=== PATIENT | female | born 1955 | race African-American/Black ===

== ENCOUNTER 2017-07-23 10:21 | Observation (INO) | payer BC, OTHER ==
[~2017-07-23] VITALS: Ht 165.1 cm; Wt 70.0 kg
[~2017-07-23 10:21] MED LIST: DILT360C12 PO; FERR324T4 PO
[2017-07-23 10:25] VITALS: BP 178/81; PULSE 131; RESP 16; TEMP 97.6; O2SAT 100
[2017-07-23 11:03] VITALS: BP 147/68; PULSE 115; RESP 12; O2SAT 100
[2017-07-23] MEDS ORDERED: LOSA25TA PO (11:06)
[2017-07-23] MEDS ORDERED: BP med PO (11:06)
--- NOTE | 2017-07-23 11:08 | PD ---
HPI Chief Complaint: Dizziness Time Seen by Provider: 10:41 Travel History International Travel<30 days: No Contact w/Intl Traveler<30days: No Traveled to known affect area: No History of Present Illness HPI 62 y/o female presents with dizziness and lightheaded feeling for the past couple of days. She denies any shortness of breath, chest pain, fever or other concurrent complaints. She states she feels worse when she moves around. She denies other modifying factors. She denies recurrent history of this. Quality is lightheaded. Severity is progressive. PFSH Past Medical History Hypertension: Yes Past Surgical History Cholecystectomy: Yes Social History Alcohol Use: No Tobacco Use: No Substance Use: No Allergies-Medications (Allergen,Severity, Reaction): Coded Allergies: No Known Allergies (Unverified Allergy, Unknown, 07/23/17) Reported Meds & Prescriptions Reported Meds & Active Scripts Active Reported [BP med ] PO HS Losartan (Losartan Potassium) 25 Mg Tab 25 Mg PO DAILY Review of Systems Except as stated in HPI: all other systems reviewed are Neg Physical Exam Narrative GENERAL: 62 y/o female in no apparent distress SKIN: Focused skin assessment warm/dry. HEAD: Atraumatic. Normocephalic. EYES: Pupils equal and round. No scleral icterus. No injection or drainage. ENT: No nasal bleeding or discharge. Mucous membranes pink and moist. NECK: Trachea midline. CARDIOVASCULAR: Regular rate and rhythm. RESPIRATORY: No accessory muscle use. Clear to auscultation. Breath sounds equal bilaterally. GASTROINTESTINAL: Abdomen soft, non-tender, nondistended. MUSCULOSKELETAL: No obvious deformities. No clubbing. No cyanosis NEUROLOGICAL: Awake and alert. No obvious cranial nerve deficits. Motor grossly within normal limits. Normal speech. 5 out 5 in all 4 extremities PSYCHIATRIC: Appropriate mood and affect; insight and judgment normal. Data Data Last Documented VS Vital Signs Date Time Temp Pulse Resp B/P (MAP) Pulse Ox O2 Delivery O2 Flow Rate FiO2 07/23/17 11:03 115 12 147/68 (94) 100 Room Air 07/23/17 10:25 97.6 Orders Orders Magnesium (Mg) (07/23/17 10:41) Phosphorus (Po4) (07/23/17 10:41) Complete Blood Count With Diff (07/23/17 10:41) Comprehensive Metabolic Panel (07/23/17 10:41) Ckmb (Isoenzyme) Profile (07/23/17 10:41) Troponin I (07/23/17 10:41) Urinalysis - C+S If Indicated (07/23/17 10:41) Act Partial Throm Time (Ptt) (07/23/17 10:41) Prothrombin Time / Inr (Pt) (07/23/17 10:41) Electrocardiogram (07/23/17 ) Iv Access Insert/Monitor (07/23/17 10:41) Ecg Monitoring (07/23/17 10:41) Oximetry (07/23/17 10:41) Type And Screen (07/23/17 10:41) Lactic Acid (07/23/17 10:41) Chest, Single Ap (07/23/17 ) Ct Brain W/O Iv Contrast(Rout) (07/23/17 ) Sodium Chlorid 0.9% 500 Ml Inj (Ns 500 M (07/23/17 11:15) CKMB (07/23/17 11:15) CKMB% (07/23/17 11:15) Urine Culture (07/23/17 11:40) Piperacil-Tazo 3.375 Gm Premix (Zosyn 3. (07/23/17 12:15) Ct Abd/Pel W Iv Contrast(Rout) (07/23/17 ) Sodium Chlor 0.9% 1000 Ml Inj (Ns 1000 M (07/23/17 12:15) Iohexol 350 Inj (Omnipaque 350 Inj) (07/23/17 12:50) Sodium Chlorid 0.9% 500 Ml Inj (Ns 500 M (07/23/17 13:45) Blood Culture (07/23/17 13:38) Admit Order (Ed Use Only) (07/23/17 14:02) Place In Observation (07/23/17 ) Vital Signs (Adult) Q4H (07/23/17 14:02) Activity Oob Ad Kathrin (07/23/17 14:02) Retail Selling Specialist / Telemetry .CONTINUOUS (07/23/17 14:02) Diet Regular Basic (07/23/17 Dinner) Sodium Chloride 0.9% Flush (Ns Flush) (07/23/17 14:15) Sodium Chloride 0.9% Flush (Ns Flush) (07/23/17 21:00) Acetaminophen (Tylenol) (07/23/17 14:15) Basic Metabolic Panel (Bmp) (07/24/17 06:00) Complete Blood Count With Diff (07/24/17 06:00) Enoxaparin Inj (Lovenox Inj) (07/23/17 14:15) Naloxone Inj (Narcan Inj) (07/23/17 14:15) Labs Laboratory Tests Test 07/23/17 11:15 07/23/17 11:40 White Blood Count 10.4 TH/MM3 Red Blood Count 4.50 MIL/MM3 Hemoglobin 11.6 GM/DL Hematocrit 36.6 % Mean Corpuscular Volume 81.3 FL Mean Corpuscular Hemoglobin 25.8 PG Mean Corpuscular Hemoglobin Concent 31.8 % Red Cell Distribution Width 18.0 % Platelet Count 393 TH/MM3 Mean Platelet Volume 7.2 FL Neutrophils (%) (Auto) 70.7 % Lymphocytes (%) (Auto) 21.2 % Monocytes (%) (Auto) 6.8 % Eosinophils (%) (Auto) 1.0 % Basophils (%) (Auto) 0.3 % Neutrophils # (Auto) 7.4 TH/MM3 Lymphocytes # (Auto) 2.2 TH/MM3 Monocytes # (Auto) 0.7 TH/MM3 Eosinophils # (Auto) 0.1 TH/MM3 Basophils # (Auto) 0.0 TH/MM3 CBC Comment DIFF FINAL Differential Comment Prothrombin Time 10.1 SEC Prothromb Time International Ratio 1.0 RATIO Activated Partial Thromboplast Time 28.7 SEC Blood Urea Nitrogen 12 MG/DL Creatinine 0.63 MG/DL Random Glucose 112 MG/DL Total Protein 8.7 GM/DL Albumin 4.0 GM/DL Calcium Level 8.8 MG/DL Phosphorus Level 2.0 MG/DL Magnesium Level 2.1 MG/DL Alkaline Phosphatase 74 U/L Aspartate Amino Transf (AST/SGOT) 24 U/L Alanine Aminotransferase (ALT/SGPT) 67 U/L Total Bilirubin 0.3 MG/DL Sodium Level 141 MEQ/L Potassium Level 3.3 MEQ/L Chloride Level 107 MEQ/L Carbon Dioxide Level 21.5 MEQ/L Anion Gap 13 MEQ/L Estimat Glomerular Filtration Rate 115 ML/MIN Lactic Acid Level 2.4 mmol/L Total Creatine Kinase 116 U/L Creatine Kinase MB 1.0 NG/ML Troponin I LESS THAN 0.02 NG/ML Urine Color COLORLESS Urine Turbidity CLEAR Urine pH 7.5 Urine Specific [place] 1.006 Urine Protein NEG mg/dL Urine Glucose (UA) NEG mg/dL Urine Ketones NEG mg/dL Urine Occult Blood NEG Urine Nitrite NEG Urine Bilirubin NEG Urine Urobilinogen LESS THAN 2.0 MG/DL Urine Leukocyte Esterase NEG Urine RBC 1 /hpf Urine WBC LESS THAN 1 /hpf Urine Squamous Epithelial Cells 1 /hpf Urine Bacteria MOD /hpf Urine Mucus FEW /lpf Microscopic Urinalysis Comment CULTURE INDICATED MDM Medical Decision Making Medical Screen Exam Complete: Yes Emergency Medical Condition: Yes Medical Record Reviewed: Yes (pmh confirmed) Interpretation(s) CBC & BMP Diagram 07/23/17 11:15 Total Protein 8.7 H, Albumin 4.0, Calcium Level 8.8, Phosphorus Level 2.0 L, Magnesium Level 2.1, Alkaline Phosphatase 74, Aspartate Amino Transf (AST/SGOT) 24, Alanine Aminotransferase (ALT/SGPT) 67 H, Total Bilirubin 0.3 Last [address] 07/23/17 0000 Signed Impressions: CONCLUSION: 1. No acute intracranial abnormalities. Chronic appearing white matter ischemi c changes previously described on CT from 2013. Chest X-Ray 07/23/17 0000 Signed Impressions: CONCLUSION: Mild compensated cardiomegaly Abdomen/Pelvis CT 07/23/17 0000 Signed Impressions: CONCLUSION: 1. No acute findings. Mild fatty liver. Previous cholecystectomy. No obstructi on, free fluid or free air. Differential Diagnosis A. fib with RVR, UTI, anemia, renal failure.... Narrative Course Will check blood work, urinalysis, imaging and reevaluate. Patient given IV fluids and still with tachycardia. Will repeat IV fluid bolus given this and elevated lactate. Urine shows some signs of infection but no significant findings to fully rule source of elevated lactate so we will add on CT abdomen and dose with Zosyn No additional findings on CT. Will place in observation for further monitoring Physician Communication Physician Communication dr del rosario agrees to observation Diagnosis Primary Impression: General weakness Additional Impressions: Tachycardia Lactic acidemia UTI (urinary tract infection) Qualified Codes: N39.0 - Urinary tract infection, site not specified Admitting Information Admitting Physician Requests: Observation Theodora Jones MD Jul 23, 2017 11:08
[2017-07-23] MEDS ORDERED: SODIUM CHLORID 0.9% 500 ML INJ 500 ML IV ONE ×2 (11:15→13:45)
[2017-07-23 11:33] LABS: AUTOMATED NEUTROPHIL # 7.4 TH/MM3 (1.8-7.7); BASOPHIL % 0.3 % (0.0-2.0); EOSINOPHIL # 0.1 TH/MM3 (0-0.4); HEMATOCRIT 36.6 % (35.0-46.0); HEMOGLOBIN 11.6 GM/DL (11.6-15.3); LYMPH % 21.2 % (9.0-44.0); LYMPHOCYTE # 2.2 TH/MM3 (1.0-4.8); MEAN CELL VOLUME 81.3 FL (80.0-100.0); MEAN CORPUSCULAR HEMOGLOBIN 25.8 PG (27.0-34.0); MEAN CORPUSCULAR HGB CONC 31.8 % (32.0-36.0); MEAN PLATELET VOLUME 7.2 FL (7.0-11.0); MONO % 6.8 % (0.0-8.0); MONOCYTE # 0.7 TH/MM3 (0-0.9); NEUT % 70.7 % (16.0-70.0); PLATELET COUNT 393 TH/MM3 (150-450); WHITE BLOOD COUNT 10.4 TH/MM3 (4.0-11.0)
[2017-07-23 11:41] LABS: PROTHROMBIN TIME - PATIENT 10.1 SEC (9.8-11.6)
--- NOTE | 2017-07-23 11:45 | RADRPT ---
EXAM DATE: 07/23/2017 11:19 AM EDT AGE/SEX: 62 years / Female INDICATIONS: Palpitations. CLINICAL DATA: This is the patient's initial encounter. Patient reports that signs and symptoms have been present for 2 days and indicates a pain score of 0/10. MEDICAL/SURGICAL HISTORY: Hypertension. None. COMPARISON: No prior exams available for comparison. FINDINGS: A single AP view of the chest demonstrates the lungs to be symmetrically aerated without evidence of mass, infiltrate or effusion. Mild prominence cardiac silhouette.. Osseous structures are intact. CONCLUSION: Mild compensated cardiomegaly Electronically signed by: Angelito Torres MD 07/23/2017 11:43 AM EDT
[2017-07-23 11:50] LABS: AST (GOT) 24 U/L (15-37); BICARBONATE 21.5 MEQ/L (21.0-32.0); BLOOD UREA NITROGEN 12 MG/DL (7-18); CALCIUM 8.8 MG/DL (8.5-10.1); CHLORIDE 107 MEQ/L (98-107); CREATININE 0.63 MG/DL (0.50-1.00); GLOMERULAR FILTRATION RATE 115 ML/MIN (>89); GLUCOSE,RANDOM 112 MG/DL (74-106); MAGNESIUM 2.1 MG/DL (1.5-2.5); SODIUM (NA) 141 MEQ/L (136-145)
[2017-07-23 11:56] LABS: ALKALINE PHOSPHATASE 74 U/L (45-117); ALT (GPT) 67 U/L (10-53); TOTAL BILIRUBIN ADULT 0.3 MG/DL (0.2-1.0); TOTAL PROTEIN 8.7 GM/DL (6.4-8.2); TROPONIN I LESS THAN 0.02 NG/ML (0.02-0.05)
[2017-07-23 12:03] LABS: BACTERIA, URINE MOD /hpf; BILIRUBIN, URINE NEG (NEG); BLOOD, URINE NEG (NEG); GLUCOSE,URINE NEG (NEG); KETONE, URINE NEG (NEG); MUCUS URINE FEW /lpf (OCC); NITRITE,URINE NEG (NEG); PH, URINE 7.5 (5.0-8.5); SQUAMOUS EPITHELIAL CELL URINE 1 /hpf (0-5); URINE COLOR COLORLESS (YELLW/STRAW); URINE LEUKOCYTE ESTERASE NEG (NEG)
[2017-07-23] MEDS ORDERED: PIPERACIL-TAZO 3.375 GM PREMIX 50 ML IV ONE (12:15)
[2017-07-23] MEDS ORDERED: SODIUM CHLOR 0.9% 1000 ML INJ 1,000 ML IV ONE (12:15)
[2017-07-23] MEDS ORDERED: IOHEXOL 350 MG/ML 10 ML VIAL (for RAD DIAG) IVCONTRAST ONE (12:50)
--- NOTE | 2017-07-23 13:19 | RADRPT ---
EXAM DATE: 07/23/2017 1:07 PM EDT AGE/SEX: 62 years / Female INDICATIONS: Dizziness for two days. CLINICAL DATA: This is the patient's initial encounter. Patient reports that signs and symptoms have been present for 2 days and indicates a pain score of 0/10. MEDICAL/SURGICAL HISTORY: Hypertension. Cholecystectomy. RADIATION DOSE: 56.35 CTDI (mGy) COMPARISON: [facility] – [place], CT BRAIN W/O CONTRAST, 02/16/2013. . TECHNIQUE: CT of the head without contrast. Using automated exposure control and adjustment of the mA and/or kV according to patient size, radiation dose was kept as low as reasonably achievable to ob tain optimal diagnostic quality images. FINDINGS: Cerebrum: The ventricles are normal for age. No evidence of midline shift, mass lesion, hemorrhage or acute infarction. No extraaxial fluid collections are seen. Chronic white matter ischemic changes . Posterior Fossa: The cerebellum and brainstem are intact. The 4th ventricle is midline. The cerebe llopontine angle is unremarkable. Extracranial: The visualized portion of the orbits is intact. Skull: The calvaria is intact. No evidence of skull fracture. CONCLUSION: 1. No acute intracranial abnormalities. Chronic appearing white matter ischemic changes previously d escribed on CT from 2013. Electronically signed by: Nj Blair MD 07/23/2017 1:17 PM EDT
--- NOTE | 2017-07-23 13:30 | RADRPT ---
EXAM DATE: 07/23/2017 1:13 PM EDT AGE/SEX: 62 years / Female INDICATIONS: Nausea. CLINICAL DATA: This is the patient's initial encounter. Patient reports that signs and symptoms have been present for 2 days and indicates a pain score of 0/10. MEDICAL/SURGICAL HISTORY: Hypertension. Cholecystectomy. ORAL CONTRAST: No oral contrast ingested. RADIATION DOSE: 8.30 CTDI (mGy) COMPARISON: No prior exams available for comparison. TECHNIQUE: Multiple contiguous axial images were obtained through the abdomen and pelvis following b olus infusion of 80 ml Omnipaque 350 (iohexol) nonionic water-soluble contrast as a single exam dos e. No oral contrast ingested. Using automated exposure control and adjustment of the mA and/or kV ac cording to patient size, the radiation dose was kept as low as reasonably achievable to obtain optima l diagnostic quality images. FINDINGS: Lung bases are clear. Mild fatty liver. No acute findings in the spleen, adrenals, kidneys or pancrea s. Previous cholecystectomy with mild biliary ductal prominence. No free fluid. No free air. No bowel obstruction. CONCLUSION: 1. No acute findings. Mild fatty liver. Previous cholecystectomy. No obstruction, free fluid or free air. Electronically signed by: Nj Blair MD 07/23/2017 1:29 PM EDT
[2017-07-23 14:13] VITALS: BP 171/76; PULSE 107; RESP 19; O2SAT 99
[2017-07-23] MEDS ORDERED: NALOXONE HCL 0.4 MG/ML AMP IV PUSH PRN (14:15)
[2017-07-23] MEDS ORDERED: SODIUM CHLORIDE 0.9% FLUSH 10 ML FLUSH IV FLUSH PRN (14:15)
[2017-07-23 15:00] VITALS: BP 138/75; PULSE 79; RESP 18; TEMP 98.7; O2SAT 94
[2017-07-23 16:47] VITALS: PULSE 101
[2017-07-23] MEDS: ENOXAPARIN SODIUM 40 MG/0.4 ML SYRINGE SQ SCH (17:21)
--- NOTE | 2017-07-23 17:54 | HHI.HP ---
[facility] Service [facility] Primary Care Physician Sy Jones DO Admission Diagnosis lactic acidosis, weakness, sinus tachycardia Diagnoses: (1) UTI (urinary tract infection) (2) Tachycardia (3) Lactic acidemia Travel History International Travel<30 Days: No Contact w/Intl Traveler <30 Da: No Traveled to Known Affected Are: No History of Present Illness 62-year-old female with history of hypertension presents to the ER with complaint of dizziness. For the last week she has been experiencing hot and cold flashes that she thought was related to menopause. 2 days ago she developed malaise and today she had acute onset of dizziness that made her concerned enough to come to the ER. Workup so far has shown sinus tachycardia and lactic acidosis. She denies having any recent urinary tract infection most recent was over 16 years ago. She states that her last menstrual period was over 3 years ago. She denies any gynecological symptoms, no bleeding, no symptoms of vaginal infection. Other history includes chronic low back pain and osteopenia. Review of Systems Constitutional: COMPLAINS OF: Fatigue, Chills, Dizziness, DENIES: Diaphoretic episodes, Fever, Weight gain, Weight loss Endocrine: COMPLAINS OF: Heat/cold intolerance, DENIES: Abnorml menstrual pattern, Polydipsia Eyes: DENIES: Blurred vision, Diplopia, Eye inflammation Respiratory: DENIES: Apneas, Cough, Snoring, Wheezing, Hemoptysis Cardiovascular: DENIES: Chest pain, Palpitations, Syncope, Dyspnea on Exertion , PND Gastrointestinal: DENIES: Black stools, Bloody stools, Constipation Genitourinary: COMPLAINS OF: Urinary frequency, Urinary incontinence, Urgency, DENIES: Abnormal vaginal bleeding, Hematuria, Dysuria, Vaginal discharge Hematologic/lymphatic: COMPLAINS OF: Bruising, Lymphadenopathy Immunologic/allergic: COMPLAINS OF: Eczema, Urticaria Neurologic: COMPLAINS OF: Abnormal gait, Headache, Localized weakness, Paresthesias Psychiatric: COMPLAINS OF: Anxiety, Confusion, Mood changes, Depression Past Family Social History Past Medical History Hypertension, lower back pain, osteopenia, gallstones Past Surgical History Cholecystectomy, rhinoplasty Allergies: Coded Allergies: No Known Allergies (Unverified Allergy, Unknown, 07/23/17) Family History Coronary artery disease Social History No tobacco or alcohol use Physical Exam Vital Signs Vital Signs Date Time Temp Pulse Resp B/P (MAP) Pulse Ox O2 Delivery O2 Flow Rate FiO2 07/23/17 16:47 101 07/23/17 15:00 98.7 79 18 138/75 (96) 94 07/23/17 14:52 07/23/17 14:13 107 19 171/76 (107) 99 Room Air 07/23/17 11:03 115 12 147/68 (94) 100 Room Air 07/23/17 11:03 115 07/23/17 10:25 97.6 131 16 178/81 (113) 100 Physical Exam GENERAL: This is a well-nourished, well-developed patient, in no apparent distress. SKIN: No rashes, ecchymoses or lesions. Cool and dry. HEAD: Atraumatic. Normocephalic. No temporal or scalp tenderness. EYES: Pupils equal round and reactive. Extraocular motions intact. No scleral icterus. No injection or drainage. ENT: Nose without bleeding, purulent drainage or septal hematoma. Throat without erythema, tonsillar hypertrophy or exudate. Uvula midline. Airway patent. NECK: Trachea midline. No JVD or lymphadenopathy. Supple, nontender, no meningeal signs. CARDIOVASCULAR: Regular rate and rhythm without murmurs, gallops, or rubs. RESPIRATORY: Clear to auscultation. Breath sounds equal bilaterally. No wheezes , rales, or rhonchi. GASTROINTESTINAL: Abdomen soft, non-tender, nondistended. No hepato-splenomegaly , or palpable masses. No guarding. MUSCULOSKELETAL: Extremities without clubbing, cyanosis, or edema. No joint tenderness, effusion, or edema noted. No calf tenderness. Negative Homans sign bilaterally. NEUROLOGICAL: Awake and alert. Cranial nerves II through XII intact. Motor and sensory grossly within normal limits. Five out of 5 muscle strength in all muscle groups. Normal speech. Laboratory Laboratory Tests Test 07/23/17 11:15 07/23/17 11:40 White Blood Count 10.4 Red Blood Count 4.50 Hemoglobin 11.6 Hematocrit 36.6 Mean Corpuscular Volume 81.3 Mean Corpuscular Hemoglobin 25.8 Mean Corpuscular Hemoglobin Concent 31.8 Red Cell Distribution Width 18.0 Platelet Count 393 Mean Platelet Volume 7.2 Neutrophils (%) (Auto) 70.7 Lymphocytes (%) (Auto) 21.2 Monocytes (%) (Auto) 6.8 Eosinophils (%) (Auto) 1.0 Basophils (%) (Auto) 0.3 Neutrophils # (Auto) 7.4 Lymphocytes # (Auto) 2.2 Monocytes # (Auto) 0.7 Eosinophils # (Auto) 0.1 Basophils # (Auto) 0.0 CBC Comment DIFF FINAL Differential Comment Prothrombin Time 10.1 Prothromb Time International Ratio 1.0 Activated Partial Thromboplast Time 28.7 Blood Urea Nitrogen 12 Creatinine 0.63 Random Glucose 112 Total Protein 8.7 Albumin 4.0 Calcium Level 8.8 Phosphorus Level 2.0 Magnesium Level 2.1 Alkaline Phosphatase 74 Aspartate Amino Transf (AST/SGOT) 24 Alanine Aminotransferase (ALT/SGPT) 67 Total Bilirubin 0.3 Sodium Level 141 Potassium Level 3.3 Chloride Level 107 Carbon Dioxide Level 21.5 Anion Gap 13 Estimat Glomerular Filtration Rate 115 Lactic Acid Level 2.4 Total Creatine Kinase 116 Creatine Kinase MB 1.0 Troponin I LESS THAN 0.02 Urine Color COLORLESS Urine Turbidity CLEAR Urine pH 7.5 Urine Specific [place] 1.006 Urine Protein NEG Urine Glucose (UA) NEG Urine Ketones NEG Urine Occult Blood NEG Urine Nitrite NEG Urine Bilirubin NEG Urine Urobilinogen LESS THAN 2.0 Urine Leukocyte Esterase NEG Urine RBC 1 Urine WBC LESS THAN 1 Urine Squamous Epithelial Cells 1 Urine Bacteria MOD Urine Mucus FEW Microscopic Urinalysis Comment CULTURE INDICATED Date/Time Source Procedure Growth Status 07/23/17 14:29 Blood Peripheral Aerobic Blood Culture Pending Received 07/23/17 14:29 Blood Peripheral Anaerobic Blood Culture Pending Received 07/23/17 11:40 Urine Clean Catch Urine Culture Pending Received Result Diagram: 07/23/17 1115 07/23/17 1115 Caprini VTE Risk Assessment Caprini VTE Risk Assessment: Mod/High Risk (score >= 2) Caprini Risk Assessment Model Point Value = 1 Point Value = 2 Point Value = 3 Point Value = 5 Age 41-60 Minor surgery BMI > 25 kg/m2 Swollen legs Varicose veins or History of unexplained or recurrent spontaneous Oral contraceptives or hormone replacement Sepsis (< 1 month) Serious lung disease, including pneumonia (< 1 month) Abnormal pulmonary function Acute myocardial infarction Congestive heart failure (< 1 month) History of inflammatory bowel disease Medical patient at bed rest Age 61-74 Arthroscopic surgery Major open surgery (> 45 min) Laparoscopic surgery (> 45 min) Malignancy Confined to bed (> 72 hours) Immobilizing plaster cast Central venous access Age >= 75 History of VTE Family history of VTE Factor V Leiden Prothrombin [id number] Lupus anticoagulant Anticardiolipin antibodies Elevated serum homocysteine Heparin-induced thrombocytopenia Other congenital or acquired thrombophilia Stroke (< 1 month) Elective arthroplasty Hip, pelvis, or leg fracture Acute spinal cord injury (< 1 month) Prophylaxis Regimen Total Risk Factor Score Risk Level Prophylaxis Regimen 0-1 Low Early ambulation 2 Moderate Order ONE of the following: *Sequential Compression Device (SCD) *Heparin 5000 units SQ BID 3-4 Higher Order ONE of the following medications: *Heparin 5000 units SQ TID *Enoxaparin/Lovenox 40 mg SQ daily (WT < 150 kg, CrCl > 30 mL/min) *Enoxaparin/Lovenox 30 mg SQ daily (WT < 150 kg, CrCl > 10-29 mL/min) *Enoxaparin/Lovenox 30 mg SQ BID (WT < 150 kg, CrCl > 30 mL/min) AND/OR *Sequential Compression Device (SCD) 5 or more Highest Order ONE of the following medications: *Heparin 5000 units SQ TID (Preferred with Epidurals) *Enoxaparin/Lovenox 40 mg SQ daily (WT < 150 kg, CrCl > 30 mL/min) *Enoxaparin/Lovenox 30 mg SQ daily (WT < 150 kg, CrCl > 10-29 mL/min) *Enoxaparin/Lovenox 30 mg SQ BID (WT < 150 kg, CrCl > 30 mL/min) AND *Sequential Compression Device (SCD) Assessment and Plan Problem List: (1) UTI (urinary tract infection) ICD Code: N39.0 - Urinary tract infection, site not specified Status: Acute (2) Tachycardia ICD Code: R00.0 - Tachycardia, unspecified Status: Acute (3) Lactic acidemia ICD Code: E87.2 - Acidosis Status: Acute Assessment and Plan Urinary tract infection Present for at least one week based on symptoms from history Lactic acidosis on lab work Continue Zosyn every 8 hours Follow urine culture results Lactic acidosis She appears clinically stable though combined with tachycardia she meets borderline criteria for early sepsis Watch hemodynamic stability, follow on telemetry, continue Zosyn, recheck lactic acid level in the morning Sinus tachycardia Improving with IV antibiotics Hypertension Continue home dose antihypertensive Continue IV antibiotics h/o chronic low back pain Continue muscle relaxers from home DVT prophylaxis Lovenox Problem Qualifiers (1) UTI (urinary tract infection): Qualified Codes: N39.0 - Urinary tract infection, site not specified Ritesh Shafer MD Jul 23, 2017 17:54
[2017-07-23 19:51] VITALS: BP 181/90; PULSE 96; RESP 17; O2SAT 100
[2017-07-23] MEDS ORDERED: baclofen PO (20:52)
[2017-07-23] MEDS ORDERED: AMLO10TA2 PO (20:54)
[2017-07-23] MEDS: SODIUM CHLORIDE 0.9% FLUSH 10 ML FLUSH IV FLUSH SCH (21:00)
[2017-07-23] MEDS: BACLOFEN 10 MG TAB PO PRN (22:13)
[2017-07-23] MEDS: ACETAMINOPHEN 325 MG TAB PO PRN (22:14)
[2017-07-23] MEDS: PIPERACIL-TAZO 3.375 GM PREMIX 50 ML IV SCH (23:49)
[2017-07-24] VITALS (8 sets, daily range): BP systolic 125–174; BP diastolic 60–80; PULSE 71–95; RESP 17–20; TEMP 98–98.5; O2SAT 97–100
[2017-07-24] MEDS: PIPERACIL-TAZO 3.375 GM PREMIX 50 ML IV SCH ×3 (06:00→21:26)
[2017-07-24] MEDS ORDERED: POTASSIUM CHLORIDE 20 MEQ CONTROLLED RELEASE TAB PO ONE ×2 (07:30→10:30)
[2017-07-24 07:44] LABS: AUTOMATED NEUTROPHIL # 5.6 TH/MM3 (1.8-7.7); BASOPHIL % 0.2 % (0.0-2.0); EOSINOPHIL # 0.1 TH/MM3 (0-0.4); EOSINOPHIL % 1.1 % (0.0-4.0); HEMATOCRIT 33.9 % (35.0-46.0); HEMOGLOBIN 11.5 GM/DL (11.6-15.3); LYMPH % 28.9 % (9.0-44.0); LYMPHOCYTE # 2.6 TH/MM3 (1.0-4.8); MEAN CELL VOLUME 81.6 FL (80.0-100.0); MEAN CORPUSCULAR HEMOGLOBIN 27.7 PG (27.0-34.0); MEAN PLATELET VOLUME 7.2 FL (7.0-11.0); MONO % 7.2 % (0.0-8.0); MONOCYTE # 0.6 TH/MM3 (0-0.9); NEUT % 62.6 % (16.0-70.0); PLATELET COUNT 347 TH/MM3 (150-450); RED BLOOD COUNT 4.15 MIL/MM3 (4.00-5.30); RED CELL DISTRIBUTION WIDTH 18.1 % (11.6-17.2)
[2017-07-24 08:11] LABS: BICARBONATE 25.2 MEQ/L (21.0-32.0); CALCIUM 9.1 MG/DL (8.5-10.1); CREATININE 0.57 MG/DL (0.50-1.00)
--- NOTE | 2017-07-24 08:40 | HHI.PR ---
Subjective Remarks Follow-up for UTI, lactic acidosis. Patient reports feeling much better today. She states her urinary frequency has slowed down. She states prior to receiving antibiotics, she was urinating every 30 minutes. Denies any fever/ chills, dysuria, suprapubic pain. She does report feeling slightly weak. She really wants to go home today. Denies any other medical complaints at this time. Objective Vitals Vital Signs Date Time Temp Pulse Resp B/P (MAP) Pulse Ox O2 Delivery O2 Flow Rate FiO2 07/24/17 07:49 98.0 71 18 149/69 (95) 100 07/24/17 00:19 98.5 87 17 156/80 (105) 97 07/23/17 23:46 18 07/23/17 19:51 96 17 181/90 (120) 100 07/23/17 16:47 101 07/23/17 15:00 98.7 79 18 138/75 (96) 94 07/23/17 14:52 07/23/17 14:13 107 19 171/76 (107) 99 Room Air 07/23/17 11:03 115 12 147/68 (94) 100 Room Air 07/23/17 11:03 115 07/23/17 10:25 97.6 131 16 178/81 (113) 100 I/O 07/23/17 07/23/17 07/23/17 07/24/17 07/24/17 07/24/17 07:00 15:00 23:00 07:00 15:00 23:00 Intake Total 500 ml 200 ml 200 ml Balance 500 ml 200 ml 200 ml Intake Oral 200 ml 200 ml IV Total 500 ml # Voids 1 Result Diagram: 07/24/17 0710 07/24/17 0710 Imaging Last Impressions Head CT 07/23/17 0000 Signed Impressions: CONCLUSION: 1. No acute intracranial abnormalities. Chronic appearing white matter ischemi c changes previously described on CT from 2014. Chest X-Ray 07/23/17 0000 Signed Impressions: CONCLUSION: Mild compensated cardiomegaly Abdomen/Pelvis CT 07/23/17 0000 Signed Impressions: CONCLUSION: 1. No acute findings. Mild fatty liver. Previous cholecystectomy. No obstructi on, free fluid or free air. Objective Remarks GENERAL: Well-nourished, well-developed pleasant female patient in NAD. SKIN: Warm and dry. No rash. HEENT: Normocephalic. Atraumatic. Pupils equal and round. Mucous membranes pink and moist. NECK: Supple. Trachea midline. CARDIOVASCULAR: Regular rate and rhythm. No murmur appreciated. RESPIRATORY: No accessory muscle use. Clear to auscultation. Breath sounds equal bilaterally. GASTROINTESTINAL: Abdomen soft, non-tender, nondistended. Normoactive bowel sounds x4. MUSCULOSKELETAL: No obvious deformities. Extremities without clubbing, cyanosis , or edema. NEUROLOGICAL: Awake and alert. No obvious cranial nerve deficits. Motor grossly within normal limits. Moving all extremities spontaneously. Normal speech. PSYCHIATRIC: Appropriate mood and affect; insight and judgment normal. Medications and IVs Current Medications Medications (Trade) Dose Ordered Sig/Raymundo Route Start Time Stop Time Status Last Admin (NS Flush) 2 ml UNSCH PRN IV FLUSH 07/23/17 14:15 (NS Flush) 2 ml BID IV FLUSH 07/23/17 21:00 07/24/17 09:26 (Tylenol) 650 mg Q4H PRN PO 07/23/17 14:15 07/23/17 22:14 (Lovenox Inj) 40 mg Q24H SQ 07/23/17 15:00 07/23/17 17:21 (Narcan Inj) 0.4 mg UNSCH PRN IV PUSH 07/23/17 14:15 Piperacillin Sod/ Tazobactam Sod 50 ml @ 100 mls/hr Q8H IV 07/23/17 22:00 07/24/17 06:00 (Cozaar) 25 mg DAILY PO 07/24/17 09:00 07/24/17 09:26 (Lioresal) 10 mg HS PRN PO 07/23/17 21:15 07/23/17 22:13 (Norvasc) 10 mg HS PO 07/23/17 21:15 07/23/17 22:13 A/P Problem List: (1) UTI (urinary tract infection) ICD Code: N39.0 - Urinary tract infection, site not specified Status: Acute (2) Tachycardia ICD Code: R00.0 - Tachycardia, unspecified Status: Acute (3) Lactic acidemia ICD Code: E87.2 - Acidosis Status: Acute Assessment and Plan 62-year-old female with history of hypertension, low back pain, gallstones, osteopenia, presents with malaise, dizziness, increased urinary frequency. UTI: Symptomatic. Subjective fevers at home, afebrile here. WBC 10.4 K, however lactic acid 2.4 and tachycardic HR 130s. -UA with moderate bacteria -Started on IV Zosyn for now with lactic acidosis -Urine culture pending Lactic acidosis: Suspect secondary to UTI as above -Continue antibiotics -Received IV fluid boluses 3 L -Repeat lactic acid 1.4, resolved Hypokalemia/hypophosphatemia: Potassium 3.2, phosphorus 2.0, likely secondary to decreased oral intake -Given p.o. KCl and K-Phos replacement Sinus tachycardia: Acute, likely secondary to infection -Improved after receiving IV fluids and IV antibiotics -Heart rate now well controlled in the 70s Hypertension: Chronic -Continue patient's Norvasc 10 mg daily and losartan 25 mg daily -Monitor BP, adjust antihypertensives as needed DVT prophylaxis: Lovenox Discharge Planning Discharge pending PT evaluation and urine/blood cultures. Addendum [id number]: Patient's blood cultures with 1/4 gram positive cocci. Will repeat blood culture stat. Add IV Vancomycin to IV Zosyn. Consult ID. Hold off on discharge today. Problem Qualifiers (1) UTI (urinary tract infection): Qualified Codes: N39.0 - Urinary tract infection, site not specified Maggie Aguilera PA-C Jul 24, 2017 08:40
[2017-07-24] MEDS: LOSARTAN 25 MG TAB PO SCH (09:26)
[2017-07-24] MEDS: SODIUM CHLORIDE 0.9% FLUSH 10 ML FLUSH IV FLUSH SCH ×2 (09:26→21:28)
[2017-07-24] MEDS ORDERED: BACL10TA PO (10:28)
[2017-07-24] MEDS ORDERED: POTASSIUM PHOSPHATE MONOBASIC 500 MG TAB PO ONE (10:30)
--- NOTE | 2017-07-24 13:47 | HHI.FF ---
Face to Face Verification Diagnosis: (1) Hypertension (2) General weakness (3) UTI (urinary tract infection) (4) Tachycardia Physical Therapy Order: Evaluate and Treat, Improve ambulation, Strength and gait training Home Health Nursing Order: Medical education Signs/symptoms of disease process Nursing assessment with vital signs I have seen patient Mayte Shafer on 07/24/17. My clinical findings support the need for the requested home health care services because: Deconditioned w/ increased weakness Limited ability to care for self I certify that my clinical findings support that this patient is homebound because: Unsteady gait/balance Unsafe to leave home unassisted Unable to use public transportation Maggie Aguilera PA-C Jul 24, 2017 13:47
[2017-07-24] MEDS ORDERED: CEFU1TAB18 PO (13:48)
--- NOTE | 2017-07-24 13:50 | HHI.DCPOC ---
Discharge Care Plan Diagnosis: (1) Hypertension (2) General weakness (3) UTI (urinary tract infection) Goals to Promote Your Health * To prevent worsening of your condition and complications * To maintain your health at the optimal level Directions to Meet Your Goals Take your medications as prescribed Follow your dietary instruction Follow activity as directed Keep your appointments as scheduled Take your immunizations and boosters as scheduled If your symptoms worsen call your PCP, if no PCP go to Urgent Care Center or Emergency Room Smoking is Dangerous to Your Health. Avoid second hand smoke Call the 24-hour hour crisis hotline for domestic abuse at Maggie Aguilera PA-C Jul 24, 2017 1:50 pm
[2017-07-24] MEDS ORDERED: IBUPROFEN 400 MG TAB PO ONE (14:15)
[2017-07-24] MEDS ORDERED: Vancomycin Consult Pharmacy 1 EA OTHER SCH (14:30)
[2017-07-24] MEDS: ENOXAPARIN SODIUM 40 MG/0.4 ML SYRINGE SQ SCH (14:48)
[2017-07-24] MEDS: VANCOMYCIN 1,000 MG/NS 250 ML IV SCH ×2 (17:03)
--- NOTE | 2017-07-24 18:15 | EKG ---
Date Performed: 07/23/2017 Time Performed: 10:18:35 PTAGE: 62 years EKG: SINUS TACHYCARDIA ABNORMAL RHYTHM ECG NO PREVIOUS TRACING DOCTOR: Nelia Abel Interpretating Date/Time 07/24/2017 18:11:50
[2017-07-24] MEDS: ACETAMINOPHEN 325 MG TAB PO PRN (21:30)
[2017-07-25] MEDS: BACLOFEN 10 MG TAB PO PRN (03:37)
[2017-07-25] MEDS: VANCOMYCIN 1,000 MG/NS 250 ML IV SCH ×2 (03:38)
[2017-07-25 03:43] VITALS: BP 131/62; PULSE 67; RESP 20; TEMP 98.2; O2SAT 100
[2017-07-25] MEDS: PIPERACIL-TAZO 3.375 GM PREMIX 50 ML IV SCH (05:45)
[2017-07-25] MEDS: ACETAMINOPHEN 325 MG TAB PO PRN (05:48)
[2017-07-25 07:32] VITALS: BP 134/46; PULSE 75; RESP 20; TEMP 98.2; O2SAT 97
[2017-07-25 07:42] LABS: AUTOMATED NEUTROPHIL # 5.6 TH/MM3 (1.8-7.7); BASOPHIL % 0.3 % (0.0-2.0); EOSINOPHIL # 0.1 TH/MM3 (0-0.4); EOSINOPHIL % 1.4 % (0.0-4.0); HEMATOCRIT 36.4 % (35.0-46.0); HEMOGLOBIN 11.9 GM/DL (11.6-15.3); LYMPH % 27.3 % (9.0-44.0); LYMPHOCYTE # 2.4 TH/MM3 (1.0-4.8); MEAN CELL VOLUME 82.2 FL (80.0-100.0); MEAN CORPUSCULAR HEMOGLOBIN 26.9 PG (27.0-34.0); MEAN CORPUSCULAR HGB CONC 32.7 % (32.0-36.0); MEAN PLATELET VOLUME 7.4 FL (7.0-11.0); MONO % 7.2 % (0.0-8.0); MONOCYTE # 0.6 TH/MM3 (0-0.9); NEUT % 63.8 % (16.0-70.0); PLATELET COUNT 352 TH/MM3 (150-450); RED BLOOD COUNT 4.43 MIL/MM3 (4.00-5.30); RED CELL DISTRIBUTION WIDTH 18.2 % (11.6-17.2); WHITE BLOOD COUNT 8.9 TH/MM3 (4.0-11.0)
[2017-07-25 07:49] VITALS: PULSE 80
--- NOTE | 2017-07-25 09:40 | HHI.PR ---
Subjective Remarks Follow-up for UTI, positive blood cultures. Patient reports feeling well today. She states her urinary frequency has decreased back to normal. Denies any dysuria or suprapubic pain. Denies any fever/chills, nausea/vomiting, or diarrhea. She reports chronic low back pain, requesting some ibuprofen. Denies any other medical complaints at this time. She wants to go home. Objective Vitals Vital Signs Date Time Temp Pulse Resp B/P (MAP) Pulse Ox O2 Delivery O2 Flow Rate FiO2 07/25/17 07:49 80 07/25/17 07:32 98.2 75 20 134/46 (75) 97 07/25/17 06:48 14 07/25/17 03:43 98.2 67 20 131/62 (85) 100 07/24/17 22:49 98.2 77 20 125/60 (81) 98 07/24/17 20:06 98.4 95 18 174/78 (110) 100 07/24/17 18:46 86 07/24/17 18:00 98.1 89 18 147/71 (96) 99 07/24/17 12:19 98.3 92 17 135/65 (88) 98 I/O 07/24/17 07/24/17 07/24/17 07/25/17 07/25/17 07/25/17 07:00 15:00 23:00 07:00 15:00 23:00 Intake Total 200 ml 430 ml Balance 200 ml 430 ml Intake Oral 200 ml 380 ml IV Total 50 ml # Voids 6 # Bowel Movements 1 Result Diagram: 07/25/17 0708 07/24/17 0710 Imaging Last Impressions Head CT 07/23/17 0000 Signed Impressions: CONCLUSION: 1. No acute intracranial abnormalities. Chronic appearing white matter ischemi c changes previously described on CT from 2013. Chest X-Ray 07/23/17 0000 Signed Impressions: CONCLUSION: Mild compensated cardiomegaly Abdomen/Pelvis CT 07/23/17 0000 Signed Impressions: CONCLUSION: 1. No acute findings. Mild fatty liver. Previous cholecystectomy. No obstructi on, free fluid or free air. Objective Remarks GENERAL: Well-nourished, well-developed pleasant female patient in [facility]. SKIN: Warm and dry. No rash. HEENT: Normocephalic. Atraumatic. Pupils equal and round. Mucous membranes pink and moist. NECK: Supple. Trachea midline. CARDIOVASCULAR: Regular rate and rhythm. No murmur appreciated. RESPIRATORY: No accessory muscle use. Clear to auscultation. Breath sounds equal bilaterally. GASTROINTESTINAL: Abdomen soft, non-tender, nondistended. Normoactive bowel sounds x4. MUSCULOSKELETAL: No obvious deformities. Extremities without clubbing, cyanosis , or edema. NEUROLOGICAL: Awake and alert. No obvious cranial nerve deficits. Motor grossly within normal limits. Moving all extremities spontaneously. Normal speech. PSYCHIATRIC: Appropriate mood and affect; insight and judgment normal. Medications and IVs Current Medications Medications (Trade) Dose Ordered Sig/Raymundo Route Start Time Stop Time Status Last Admin (NS Flush) 2 ml UNSCH PRN IV FLUSH 07/23/17 14:15 (NS Flush) 2 ml BID IV FLUSH 07/23/17 21:00 07/24/17 21:28 (Tylenol) 650 mg Q4H PRN PO 07/23/17 14:15 07/25/17 05:48 (Lovenox Inj) 40 mg Q24H SQ 07/23/17 15:00 07/24/17 14:48 (Narcan Inj) 0.4 mg UNSCH PRN IV PUSH 07/23/17 14:15 Piperacillin Sod/ Tazobactam Sod 50 ml @ 100 mls/hr Q8H IV 07/23/17 22:00 07/25/17 05:45 (Cozaar) 25 mg DAILY PO 07/24/17 09:00 07/24/17 09:26 (Lioresal) 10 mg HS PRN PO 07/23/17 21:15 07/25/17 03:37 (Norvasc) 10 mg HS PO 07/23/17 21:15 07/24/17 21:26 Pharmacy Profile Note 0 ml @ 0 mls/hr UNSCH OTHER 07/24/17 14:30 Vancomycin HCl 1000 mg/Sodium Chloride 250 ml @ 250 mls/hr Q12H IV 07/24/17 16:00 07/25/17 03:38 ([facility] [place]dered Lab Info) SPECIFIC LAB TO BE SOFI... ONCE ONCE .XX 07/26/17 03:45 07/26/17 03:46 (Motrin) 400 mg Q4H PRN PO 07/25/17 14:00 (Motrin) 400 mg ONCE ONCE PO 07/25/17 09:45 07/25/17 09:46 A/P Problem List: (1) UTI (urinary tract infection) ICD Code: N39.0 - Urinary tract infection, site not specified Status: Acute (2) Tachycardia ICD Code: R00.0 - Tachycardia, unspecified Status: Acute (3) Lactic acidemia ICD Code: E87.2 - Acidosis Status: Acute Assessment and Plan 62-year-old female with history of hypertension, low back pain, gallstones, osteopenia, presents with malaise, dizziness, increased urinary frequency. UTI: Symptomatic. Subjective fevers at home, afebrile here. WBC 10.4 K, however lactic acid 2.4 and tachycardic HR 130s. -UA with moderate bacteria -Started on IV Zosyn with lactic acidosis -Urine culture with mixed gram-positive momo, probable contaminants Lactic acidosis: Suspect secondary to UTI as above -Continue antibiotics -Received IV fluid boluses 3 L -Repeat lactic acid 1.4, resolved +Blood Cultures: 1/4 blood cultures with gram-positive cocci. Possible contaminant, however rule out bacteremia -Follow initial blood cultures, and repeat blood cultures pending -Continue on IV Vanco and IV Zosyn for now -Consulted infectious disease Hypokalemia/hypophosphatemia: Potassium 3.2, phosphorus 2.0, likely secondary to decreased oral intake -Given p.o. KCl and K-Phos replacement Sinus tachycardia: Acute, likely secondary to infection -Improved after receiving IV fluids and IV antibiotics -Heart rate now well controlled in the 70s Hypertension: Chronic, currently well controlled -Continue patient's Norvasc 10 mg daily and losartan 25 mg daily -Monitor BP, adjust antihypertensives as needed DVT prophylaxis: Lovenox Discharge Planning PT recommending home health care, consulted case management. Discharge pending repeat blood cultures and infectious disease evaluation. Problem Qualifiers (1) UTI (urinary tract infection): Qualified Codes: N39.0 - Urinary tract infection, site not specified Maggie Aguilera PA-C Jul 25, 2017 09:40
[2017-07-25] MEDS: LOSARTAN 25 MG TAB PO SCH (09:44)
[2017-07-25] MEDS: SODIUM CHLORIDE 0.9% FLUSH 10 ML FLUSH IV FLUSH SCH (09:45)
[2017-07-25] MEDS ORDERED: IBUPROFEN 400 MG TAB PO ONE (09:45)
[2017-07-25 11:55] VITALS: PULSE 83
[2017-07-25 12:07] VITALS: BP 128/62; PULSE 70; RESP 20; TEMP 97.9; O2SAT 96
[2017-07-25 13:13] LABS: CALCIUM 9.4 MG/DL (8.5-10.1); CREATININE 0.69 MG/DL (0.50-1.00)
[2017-07-25] MEDS ORDERED: IBUPROFEN 400 MG TAB PO PRN (14:00)
--- NOTE | 2017-07-25 14:34 | PD.ID.CON ---
History of Present Illness Service ID Consult Requested By Dr Shafer Reason for Consult bacteremia Primary Care Physician Sy Jones DO Diagnoses: History of Present Illness 62 yo F with no significan past med history presented with I day of dizziness and lightheadedness No leukocytosis or fever Borderline elevated lactic acid She has neg UA, CXR, CT head and CT abd/pel Her blood clx were + for coag neg staph 1/4 bottles Pt is on broad spectrum abx Her symptoms have resolved Review of Systems Except as stated in HPI: all other systems reviewed are Neg Past Family Social History Allergies: Coded Allergies: No Known Allergies (Unverified Allergy, Unknown, 07/23/17) Past Medical History Hypertension, lower back pain, osteopenia, gallstones Past Surgical History Cholecystectomy, rhinoplasty Active Ordered Medications Medications where reviewed in EMR Antibiotics Include: zosyn vancomycin Family History Coronary artery disease Social History No tobacco or alcohol use Physical Exam Vital Signs Vital Signs Date Time Temp Pulse Resp B/P (MAP) Pulse Ox O2 Delivery O2 Flow Rate FiO2 07/25/17 12:07 97.9 70 20 128/62 (84) 96 07/25/17 11:55 83 07/25/17 07:49 80 07/25/17 07:32 98.2 75 20 134/46 (75) 97 07/25/17 06:48 14 07/25/17 03:43 98.2 67 20 131/62 (85) 100 07/24/17 22:49 98.2 77 20 125/60 (81) 98 07/24/17 20:06 98.4 95 18 174/78 (110) 100 07/24/17 18:46 86 07/24/17 18:00 98.1 89 18 147/71 (96) 99 Physical Exam CONSTITUTIONAL/GENERAL: This is an adequately nourished patient, in no apparent distress. TUBES/LINES/DRAINS: SKIN: No jaundice, rashes, or lesions. Skin temperature appropriate. Not diaphoretic. HEAD: Atraumatic. Normocephalic. EYES: Pupils equal and round and reactive. Extraocular motions intact. No scleral icterus. No injection or drainage. Fundi not examined. ENT: Hearing grossly normal. Nose without bleeding or purulent drainage. Throat without visible erythema, exudates, masses, or lesions. NECK: Trachea midline. Supple, nontender. No palpable thyroid enlargement or nodularity. CARDIOVASCULAR: Regular rate and rhythm without murmurs, gallops, or rubs. No JVD. Peripheral pulses symmetric. RESPIRATORY/CHEST: Symmetric, unlabored respirations. Clear to auscultation. Breath sounds equal bilaterally. No wheezes, rales, or rhonchi. GASTROINTESTINAL: Abdomen soft, obese non-tender, nondistended. No hepato- splenomegaly, or palpable masses. No guarding. Bowel sounds present. GENITOURINARY: Without palpable bladder distension. MUSCULOSKELETAL: Extremities without clubbing, cyanosis, or edema. No joint tenderness or effusion noted. No calf tenderness. No mottling or clubbing. LYMPHATICS: No palpable cervical or supraclavicular adenopathy. NEUROLOGICAL: Awake and alert. Motor and sensory grossly within normal limits. Follows commands. Cognitively sharp. Moves all extremities. PSYCHIATRIC: No obvious anxiety/depression. no apparent hallucinations or other psychotic thought process. Laboratory Laboratory Tests Test 07/25/17 07:08 07/25/17 12:38 White Blood Count 8.9 Red Blood Count 4.43 Hemoglobin 11.9 Hematocrit 36.4 Mean Corpuscular Volume 82.2 Mean Corpuscular Hemoglobin 26.9 Mean Corpuscular Hemoglobin Concent 32.7 Red Cell Distribution Width 18.2 Platelet Count 352 Mean Platelet Volume 7.4 Neutrophils (%) (Auto) 63.8 Lymphocytes (%) (Auto) 27.3 Monocytes (%) (Auto) 7.2 Eosinophils (%) (Auto) 1.4 Basophils (%) (Auto) 0.3 Neutrophils # (Auto) 5.6 Lymphocytes # (Auto) 2.4 Monocytes # (Auto) 0.6 Eosinophils # (Auto) 0.1 Basophils # (Auto) 0.0 CBC Comment DIFF FINAL Differential Comment Blood Urea Nitrogen 13 Creatinine 0.69 Random Glucose 80 Calcium Level 9.4 Sodium Level 144 Potassium Level 3.4 Chloride Level 108 Carbon Dioxide Level 26.0 Anion Gap 10 Estimat Glomerular Filtration Rate 104 Date/Time Source Procedure Growth Status 07/24/17 14:55 Blood Peripheral Aerobic Blood Culture - Preliminary NO GROWTH IN 1 DAY Resulted 07/24/17 14:55 Blood Peripheral Anaerobic Blood Culture - Preliminary NO GROWTH IN 1 DAY Resulted 07/23/17 11:40 Urine Clean Catch Urine Culture - Final 10-50,000 CFU/ML MIXED GRAM POSITIVE ... Complete Result Diagram: 07/25/17 0708 07/25/17 1238 Imaging Last Impressions Head CT 07/23/17 0000 Signed Impressions: CONCLUSION: 1. No acute intracranial abnormalities. Chronic appearing white matter ischemi c changes previously described on CT from 2013. Chest X-Ray 07/23/17 0000 Signed Impressions: CONCLUSION: Mild compensated cardiomegaly Abdomen/Pelvis CT 07/23/17 0000 Signed Impressions: CONCLUSION: 1. No acute findings. Mild fatty liver. Previous cholecystectomy. No obstructi on, free fluid or free air. Assessment and Plan Assessment and Plan Dizziness, lightheadedness Lactic acidosis Doubt sepsis , probably 2/2 dehydration Low grade coag negative staph bacteremia, 1/4 bottles - no h/o indwelling endovascular devices - doubt clinical significance, cristy contaminant - dc antoibiotic OK to dc pt repeat blood clx if fever, chills Flower Yates MD Jul 25, 2017 14:34
[2017-07-25] MEDS: ENOXAPARIN SODIUM 40 MG/0.4 ML SYRINGE SQ SCH (15:11)
[2017-07-26] MEDS ORDERED: PHARMACY ORDERED LAB ONE (03:45)
--- NOTE | 2017-07-26 17:45 | HHI.DS ---
Discharge Summary Admission Date Jul 23, 2017 at 14:04 Discharge Date: Jul 25, 2017 Admitting Diagnosis lactic acidosis, weakness, sinus tachycardia (1) UTI (urinary tract infection) ICD Code: N39.0 - Urinary tract infection, site not specified Diagnosis: Principal Status: Acute (2) Tachycardia ICD Code: R00.0 - Tachycardia, unspecified Diagnosis: Secondary Status: Acute (3) Lactic acidemia ICD Code: E87.2 - Acidosis Diagnosis: Principal Status: Acute Procedures None. Brief History - From Admission From Admission H&P: 62-year-old female with history of hypertension presents to the ER with complaint of dizziness. For the last week she has been experiencing hot and cold flashes that she thought was related to menopause. 2 days ago she developed malaise and today she had acute onset of dizziness that made her concerned enough to come to the ER. Workup so far has shown sinus tachycardia and lactic acidosis. She denies having any recent urinary tract infection most recent was over 16 years ago. She states that her last menstrual period was over 3 years ago. She denies any gynecological symptoms, no bleeding, no symptoms of vaginal infection. Other history includes chronic low back pain and osteopenia. CBC/BMP: 07/25/17 0708 07/25/17 1238 Significant Findings Laboratory Tests Test 07/24/17 07:10 07/25/17 07:08 07/25/17 12:38 Hemoglobin 11.5 GM/DL (11.6-15.3) Hematocrit 33.9 % (35.0-46.0) Red Cell Distribution Width 18.1 % (11.6-17.2) 18.2 % (11.6-17.2) Potassium Level 3.2 MEQ/L (3.5-5.1) 3.4 MEQ/L (3.5-5.1) Mean Corpuscular Hemoglobin 26.9 PG (27.0-34.0) Chloride Level 108 MEQ/L (98-107) Imaging Last Impressions Head CT 07/23/17 0000 Signed Impressions: CONCLUSION: 1. No acute intracranial abnormalities. Chronic appearing white matter ischemi c changes previously described on CT from 2013. Chest X-Ray 07/23/17 0000 Signed Impressions: CONCLUSION: Mild compensated cardiomegaly Abdomen/Pelvis CT 07/23/17 0000 Signed Impressions: CONCLUSION: 1. No acute findings. Mild fatty liver. Previous cholecystectomy. No obstructi on, free fluid or free air. PE at Discharge GENERAL: Well-nourished, well-developed pleasant female patient in NAD. SKIN: Warm and dry. No rash. HEENT: Normocephalic. Atraumatic. Pupils equal and round. Mucous membranes pink and moist. NECK: Supple. Trachea midline. CARDIOVASCULAR: Regular rate and rhythm. No murmur appreciated. RESPIRATORY: No accessory muscle use. Clear to auscultation. Breath sounds equal bilaterally. GASTROINTESTINAL: Abdomen soft, non-tender, nondistended. Normoactive bowel sounds x4. MUSCULOSKELETAL: No obvious deformities. Extremities without clubbing, cyanosis , or edema. NEUROLOGICAL: Awake and alert. No obvious cranial nerve deficits. Motor grossly within normal limits. Moving all extremities spontaneously. Normal speech. PSYCHIATRIC: Appropriate mood and affect; insight and judgment normal. Hospital Course 62-year-old female with history of hypertension, low back pain, gallstones, osteopenia, presents with malaise, dizziness, increased urinary frequency. UTI: Symptomatic. Subjective fevers at home, afebrile here. WBC 10.4 K, however lactic acid 2.4 and tachycardic HR 130s. UA with moderate bacteria. Started on IV Zosyn with lactic acidosis. Urine culture with mixed gram- positive momo, probable contaminants. Discontinue antibiotics. Symptoms resolved. Lactic acidosis: Suspect secondary to UTI as above. Given antibiotics. Received IV fluid boluses 3 L. Repeat lactic acid 1.4, resolved. +Blood Cultures: 1/4 blood cultures with gram-positive cocci. Suspect contaminant, however rule out bacteremia. Final blood culture with 1/4 Staph Sp Coagulase Negative and repeat blood cultures with no growth. Discontinued IV Vanco and IV Zosyn. ID consulted, agrees likely contaminant, cleared for discharge. Hypokalemia/hypophosphatemia: Potassium 3.2, phosphorus 2.0, likely secondary to decreased oral intake. Given p.o. KCl and K-Phos replacement. Improved. Sinus tachycardia: Acute, likely secondary to infection. Improved after receiving IV fluids and IV antibiotics. Heart rate now well controlled in the 70s. Resolved. Hypertension: Chronic, currently well controlled. Continued patient's Norvasc 10 mg daily and losartan 25 mg daily. Stable for d/c. Pt Condition on Discharge: Stable Discharge Disposition: Disch w/ Home Health Serv Discharge Time: > 30 minutes Discharge Instructions DIET: Follow Instructions for: Heart Healthy Diet Activities you can perform: Regular-No Restrictions Follow up Referrals: PCP Follow-up - 1 Week with Sy Jones DO Continued Medications: Amlodipine (Amlodipine) 10 Mg Tab 10 MG PO DAILY for Blood Pressure Management, #30 TAB 0 Refills Baclofen (Baclofen) 10 Mg Tab 10 MG PO HS, TAB 0 Refills Losartan (Losartan) 25 Mg Tab 25 MG PO DAILY for Blood Pressure Management, #30 TAB 0 Refills [BP med ] () PO HS Maggie Aguilera PA-C Jul 26, 2017 17:45
== END 2017-07-25 17:15 | disposition home or self-care (01) ==
LOC: NEPE 10:21 → NEDA 14:04 → NEPHCDU 14:57
PROVIDERS: ADMIT Hospitalist; ATTEND Hospitalist
DX: N39.0 Urinary tract infection, site not specified (principal); R00.0 Tachycardia, unspecified; E87.2 Acidosis; I11.9 Hypertensive heart disease without heart failure; G89.29 Other chronic pain; M54.5 Low back pain; M85.80 Other specified disorders of bone density and structure, unspecified site; K76.0 Fatty (change of) liver, not elsewhere classified; Z82.49 Family history of ischemic heart disease and other diseases of the circulatory system; E86.0 Dehydration; B95.7 Other staphylococcus as the cause of diseases classified elsewhere; B96.89 Other specified bacterial agents as the cause of diseases classified elsewhere; R00.2 Palpitations; R94.31 Abnormal electrocardiogram [ECG] [EKG]; R53.81 Other malaise; E87.6 Hypokalemia; E83.39 Other disorders of phosphorus metabolism
CPT/HCPCS: 70450; 71045; 74177; 80048; 80053; 81001; 82550; 82552; 83605; 83735; 84100; 84484; 85025; 85610; 85730; 86850; 86900; 86901; 87040; 87086; 87205; 93005; 96361; 96365; 96366; 96372; 96376; 97110; 97163; 99285; G0378; G8987; G8988; J1650; J2543; J3370; J7030; J7040; J7050; Q9967